=== PATIENT | female | born 1965 | race Caucasian/White ===

== ENCOUNTER 2021-11-13 20:17 | Emergency (ER) | payer BC, SELFPAY ==
[~2021-11-13] VITALS: Ht 172.7 cm; Wt 72.6 kg
[2021-11-13 20:25] VITALS: BP_SYST 124
[2021-11-14 01:00] VITALS: BP_SYST 120
[2021-11-14] MEDS ORDERED: OLOP5DRO20 EACH EYE (01:07)
[2021-11-14] MEDS ORDERED: FLUT16SP16 NS (01:07)
== END 2021-11-14 01:10 | disposition home or self-care (01) ==
LOC: SED 20:17
DX: J30.2 Other seasonal allergic rhinitis (principal)
CPT/HCPCS: 36415; 85651-TC; 86140; 99283

== ENCOUNTER 2022-05-28 10:23 | Emergency (ER) | payer BC ==
[~2022-05-28] VITALS: Ht 172.7 cm; Wt 72.6 kg
[~2022-05-28 10:23] MED LIST: FLUT16SP16 NS; OLOP5DRO20 EACH EYE
[2022-05-28 11:08] VITALS: BP_SYST 122
[2022-05-28 17:00] LABS: BILIRUBIN,URINE NEGATIVE (NEGATIVE); CLARITY/URINE CLEAR (CLEAR); COLOR,URINE YELLOW (YELLOW); GLUCOSE,URINE NEGATIVE (NEGATIVE); KETONES,URINE NEGATIVE (NEGATIVE); LEUKOCYTE ESTERASE ,URINE NEGATIVE (NEGATIVE); NITRITE, URINE NEGATIVE (NEGATIVE); PH,URINE 5.5 (5.0-8.0); PROTEIN URINE NEGATIVE (NEGATIVE); UROBILINOGEN,URINE 0.2 (0.2-1.0)
[2022-05-28 17:08] LABS: BLOOD, URINE TRACE (NEGATIVE)
[2022-05-28 17:09] LABS: BACTERIA,URINE FEW /HPF (None Seen); MUCUS,URINE None Seen /LPF (None Seen); RBC,URINE NONE SEEN /HPF (0-3); WBC,URINE 0-3 /HPF (0-3)
== END 2022-05-28 18:00 | disposition home or self-care (01) ==
LOC: SED 10:23
DX: U07.1 COVID-19 (principal); R05.9 Cough, unspecified; R50.9 Fever, unspecified; Z79.899 Other long term (current) drug therapy
CPT/HCPCS: 36415; 71045; 81000; 99284